=== PATIENT | female | born 1970 | race Two or more races ===

== ENCOUNTER 2022-11-09 15:17 | Emergency (ER) | payer MEDICARE, OTHER ==
[~2022-11-09] VITALS: Ht 167.6 cm; Wt 51.3 kg
[2022-11-09] MEDS ORDERED: ALPRAZolam 0.5 MG TAB PO ONE (15:30)
[2022-11-09] MEDS ORDERED: ASPirin 81 mg TAB PO ONE (15:30)
[2022-11-09 15:51] LABS: Basophils # (auto) 0.1 10 ^3/uL (0-0.2); Eosinophils # (auto) 0.5 10 ^3/uL (0-0.8); Eosinophils % (auto) 5.8 % (0.0-7.0); Hematocrit 44.6 % (36.0-46.0); Hemoglobin 14.9 g/dL (12.2-16.2); Lymphocytes # (auto) 2.2 10 ^3/uL (0.4-5.4); Lymphocytes % (auto) 28.2 % (10.0-50.0); Mean Corpuscular Hemoglobin 32.1 pg (28.0-32.0); Mean Corpuscular Hgb Conc. 33.5 g/dL (32.0-36.0); Mean Corpuscular Volume 95.8 fL (80.0-100.0); Monocytes # (auto) 0.5 10 ^3/uL (0-1.3); Monocytes % (auto) 6.7 % (0.0-12.0); Neutrophils # (auto) 4.6 10 ^3/uL (1.6-8.6); Neutrophils % (auto) 58.3 % (37.0-80.0); Nucleated Red Blood Cells % 0.1 %; Red Blood Cells 4.66 10^6/uL (4.0-5.20); Red Cell Distribution Width 13.2 % (11.8-14.3); White Blood Cell 7.8 10^3/uL (4.4-10.8)
[2022-11-09 16:12] LABS: INR 1.01 (0.9-1.15); Partial Thromboplastin Time 28.2 sec (24.6-33.4)
[2022-11-09 16:16] LABS: Albumin 3.8 g/dL (3.4-5.0); Calcium 9.2 mg/dL (8.5-10.1); Magnesium 2.2 mg/dL (1.6-2.6)
[2022-11-09 16:27] LABS: BUN/Creatinine Ratio 12.8 (10.0-20.0); Bilirubin, Total 0.6 mg/dL (0.2-1.0)
[2022-11-09] MEDS ORDERED: hydrOXYzine 25 MG TAB or CAP PO ONE (17:30)
[2022-11-09 19:36] VITALS: BP 122/83
[2022-11-09] MEDS ORDERED: IOHEXOL 300 MG/ML 100ML BOTTLE IJ ONE (19:59)
== END 2022-11-10 01:34 | disposition left against medical advice (07) ==
LOC: ER 15:17
DX: R07.89 Other chest pain (principal); F41.9 Anxiety disorder, unspecified; Z79.899 Other long term (current) drug therapy
CPT/HCPCS: 36415; 71045; 74177; 80053; 83690; 83735; 84484; 85025; 85610; 85730; 93005; 99285; Q9967